=== PATIENT | female | born 1985 | race Caucasian/White ===

== ENCOUNTER → 2019-03-31 | Outpatient (CLI) | payer OTHER ==
--- NOTE | 2019-04-12 15:21 | BMR ---
EXAMINATION TYPE: MR breast BILAT wo/w con DATE OF EXAM: 03/31/2019 COMPARISON: Outside bilateral ultrasound dated [id number] and left breast ultrasound dated 02/18/2016 as well as right-sided needle localization dated 04/10/2016 HISTORY: R 92.8. Prior bilateral benign excisional biopsies, overall for prior excisions per patient history. 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 The patient was i njected with 9 mL intravenous Gadavist gadolinium contrast. Three-dimensional and additional postpr ocessing imaging is created on independent workstation and reviewed during official interpretation of this study. FINDINGS: The breasts are composed of scattered fibroglandular tissue and there is mild symmetric background pa renchymal enhancement. No suspicious internal mammary, intramammary, nor axillary adenopathy within either breast. There are small bilateral T2 hyperintense and T1 hypointense nonenhancing cysts. There is a cluster a t middle depth on the right at the 12:00 position measuring approximately 1.0 cm, a small cyst measur ing 4 mm at middle depth on the right at the 1:00 position, and anterior depth 7 mm cyst at the 11:00 position. On the left there is a 4 mm cyst at the 12:00 position and 3 subcentimeter cysts in the lo wer outer quadrant of the left breast. No skin thickening is seen of either breast. There is a T2 hyperintense 4 mm mass with persistent kinetics at the 12:00 position at anterior depth in the left breast approximately 1.8 cm from the nipple on subtraction image 303 most compatible wit h a small fibroadenoma. A centrally fat-containing mass measuring 3 mm in the left breast in the uppe r outer quadrant at the 2:00 position represents a small nonenlarged intramammary lymph node. No suspicious mass or nodule mass enhancement in either breast. IMPRESSION: BI-RADS 2-benign findings. Annual screening mammography is recommended.
== END | disposition home or self-care (01) ==
LOC: RADMRIMAIN 14:52
PROVIDERS: ATTEND Family Medicine
DX: R92.8 Other abnormal and inconclusive findings on diagnostic imaging of breast (principal)
CPT/HCPCS: 77049; C8937; A9585